=== PATIENT | female | born 1940 | race Two or more races ===

== ENCOUNTER 2022-12-09 08:36 | Outpatient (CLI) | payer OTHER | END 2022-12-09 08:38 | disposition home or self-care (01) | LOC: SONOGRAMA 08:36 | PROVIDERS: ATTEND Pathology Anatomic Pathology & Clinical Pathology | DX: D34 Benign neoplasm of thyroid gland (principal); E04.9 Nontoxic goiter, unspecified; R22.1 Localized swelling, mass and lump, neck ==